=== PATIENT | male | born 1995 | race Caucasian/White ===

== ENCOUNTER → 2017-09-09 | Outpatient (CLI) | payer OTHER ==
[~2017-09-09] MED LIST: ASPI325T45 PO
--- NOTE | 2017-09-09 15:44 | DIAGNOSTIC IMAGING REPORT ---
(TESTICULAR) SCROTUM-CONT CLINICAL HISTORY: 22 years-old Male presenting with 601.9,N41.9. TECHNIQUE: Real-time grayscale and color and spectral Doppler ultrasound imaging of the scrotum was performed. COMPARISON: None. FINDINGS: Right testis: Normal echogenicity and echotexture. Testis measures 3.4 x 2.9 x 2.0 cm. Normal color Doppler flow and arterial and venous waveforms in the testicular parenchyma. Epididymal head normal. 2 mm hyperechogenic suspected calcification inferior to the testis, possibly scrotolith. No varicocele. Left testis: Normal echogenicity and echotexture. Testis measures 3.8 x 2.5 x 1.8 cm. Normal color Doppler flow and arterial and venous waveforms in the testicular parenchyma. Epididymal head normal. 4 mm hyperechogenic suspected calcification posterior to the testis, possibly scrotolith. No varicocele. Symmetric perfusion of the testes. IMPRESSION: No evidence of testicular torsion. Electronically signed by: Amado Ritchie M.D. 09/09/2017 3:42 PM Dictated Date/Time: 09/09/2017 3:40 PM
--- NOTE | 2017-09-09 16:06 | DIAGNOSTIC IMAGING REPORT ---
RENAL ULTRASOUND CLINICAL HISTORY: Prostatitis. COMPARISON STUDY: CT of the abdomen and pelvis May 15, 2017. TECHNIQUE: Sonography of the kidneys and the urinary bladder was performed. FINDINGS: The right kidney measures 9.8 cm in maximal dimension and the left measures 9.7 cm. There is no hydronephrosis. Renal echogenicity, size and cortical thickness are normal. No calculi or masses are identified by sonography. Both ureteral jets were identified within the bladder. Moderate bladder wall thickening is noted. Bladder is underdistended. A large splenule is incidentally noted. IMPRESSION: 1. Normal sonographic appearance of the kidneys. No hydronephrosis. 2. Moderate bladder wall thickening, a nonspecific finding, accentuated by underdistention. This could be correlated with urinalysis. Electronically signed by: Usman Silva M.D. 09/09/2017 4:05 PM Dictated Date/Time: 09/09/2017 4:03 PM
== END | disposition home or self-care (01) ==
LOC: C.ULTRBC 14:24
PROVIDERS: ATTEND Urology
DX: N41.9 Inflammatory disease of prostate, unspecified (principal)